=== PATIENT | male | born 1980 | race Caucasian/White ===

== ENCOUNTER 2021-08-11 12:08 | Observation (INO) ==
[2021-08-11 14:34] VITALS: BP 126/79; PULSE 96; TEMP 97.8; O2SAT 97
[2021-08-11] MEDS ORDERED: Naloxone 0.4 MG/ML INJ IVP PRN (14:57)
[2021-08-11] MEDS ORDERED: Ondansetron 4 MG/2 ML VIAL IVP PRN (15:03)
[2021-08-11] MEDS ORDERED: Acetaminophen 325 MG TABLET PO PRN (15:03)
[2021-08-12] MEDS ORDERED: Aspirin 81 MG TAB.CHEW PO SCH (09:00)
== END 2021-08-11 15:19 | disposition left against medical advice (07) ==
LOC: 3BNU
PROVIDERS: ADMIT Internal Medicine; ATTEND Internal Medicine